=== PATIENT | female | born 1975 | race Caucasian/White ===

== ENCOUNTER 2021-01-15 19:30 | Inpatient (IN) | payer OTHER ==
[~2021-01-15] VITALS: Ht 170.2 cm; Wt 45.8 kg
[~2021-01-15 19:30] MED LIST: CATAPRES0.1 MG PO; COZAAR50 MG PO; ESTRACE1 MG PO; FIORICET1 EACH PO; IMITREX100 MG PO; PERCOCET 5-3251 EACH PO; VOLTAREN **OUT75 MG PO
[2021-01-15 21:13] LABS: BASOPHIL 0.2 % (0-2); EOSINOPHIL 0 % (0-5); HGB 13.7 g/dl (12.5-16.0); MCH 28.7 pg (25.0-31.0); MCHC 32.6 g/dL (32.0-36.0); MCV 88.1 fL (78.0-100.0); MPV 11.1 fL (6.0-9.5); NEUTROPHIL 62.6 % (41-80); NRBC 0; PLT 202 K/uL (150-400); RBC 4.77 M/uL (4.20-5.40); RDW 13.9 % (11.5-14.0)
[2021-01-15 21:37] LABS: PRO-BNP 11 pg/mL (<125)
[2021-01-15 21:38] LABS: LACTIC ACID 1.4 mmol/L (0.4-1.9)
[2021-01-15 21:43] LABS: ALBUMIN 3.6 g/dL (3.4-5.0); BILIRUBIN - TOTAL 0.4 mg/dL (0.2-1.0); BUN/CREAT RATIO (CALC) 13.2 RATIO; C-REACTIVE PROTEIN 4.4 mg/dL (<=0.90); CREATININE 0.76 mg/dL (0.51-0.95); GLOBULIN (CALCULATION) 4.5 g/dL; POTASSIUM 3.1 mmol/L (3.5-5.1); TOTAL PROTEIN 8.1 g/dL (6.4-8.2)
[2021-01-16 04:32] LABS: BASOPHIL 0.2 % (0-2); EOSINOPHIL 0 % (0-5); HCT 39.3 % (37.0-47.0); HGB 12.7 g/dl (12.5-16.0); LYMPHOCYTE 13.2 % (15-48); MCH 28.5 pg (25.0-31.0); MCHC 32.3 g/dL (32.0-36.0); MCV 88.3 fL (78.0-100.0); MONOCYTE 2.2 % (0-12); MPV 10.8 fL (6.0-9.5); NEUTROPHIL 84.4 % (41-80); NRBC 0; PLT 190 K/uL (150-400); RBC 4.45 M/uL (4.20-5.40); WBC 4.5 K/uL (4.0-10.5)
[2021-01-16] MEDS ORDERED: PROTONIX 40MG T40 MG PO (04:34)
[2021-01-16] MEDS ORDERED: SPIRIVA RESPIMAT4 G1 INH (04:34)
[2021-01-16] MEDS ORDERED: ALL DAY ALLERGY10 M2 PO (04:35)
[2021-01-16] MEDS ORDERED: SYMBICORT 80-10.2 GM INH (04:36)
[2021-01-16] MEDS ORDERED: VENTOLIN HFA IN18 GM INH (04:36)
[2021-01-16 05:03] LABS: ALBUMIN 3.3 g/dL (3.4-5.0); BILIRUBIN - TOTAL 0.3 mg/dL (0.2-1.0); BUN/CREAT RATIO (CALC) 11.3 RATIO; C-REACTIVE PROTEIN 4.3 mg/dL (<=0.90); CREATININE 0.71 mg/dL (0.51-0.95); GLOBULIN (CALCULATION) 3.8 g/dL; POTASSIUM 3.6 mmol/L (3.5-5.1); TOTAL PROTEIN 7.1 g/dL (6.4-8.2)
[2021-01-17 04:30] LABS: BASOPHIL 0.1 % (0-2); EOSINOPHIL 0 % (0-5); HCT 37.5 % (37.0-47.0); LYMPHOCYTE 24.7 % (15-48); MCH 28.7 pg (25.0-31.0); MCV 89.7 fL (78.0-100.0); MONOCYTE 6.7 % (0-12); MPV 11.2 fL (6.0-9.5); NEUTROPHIL 68.2 % (41-80); NRBC 0; PLT 187 K/uL (150-400); RBC 4.18 M/uL (4.20-5.40); RDW 14.6 % (11.5-14.0)
[2021-01-17 04:39] LABS: WBC 9.1 K/uL (4.0-10.5)
[2021-01-17 05:01] LABS: BILIRUBIN - TOTAL 0.2 mg/dL (0.2-1.0); BUN/CREAT RATIO (CALC) 17.6 RATIO; CREATININE 0.68 mg/dL (0.51-0.95); GLOBULIN (CALCULATION) 3.9 g/dL; POTASSIUM 3.4 mmol/L (3.5-5.1); TOTAL PROTEIN 6.9 g/dL (6.4-8.2)
[2021-01-18 07:09] LABS: BASOPHIL 0.2 % (0-2); EOSINOPHIL 0 % (0-5); HCT 36.1 % (37.0-47.0); HGB 11.4 g/dl (12.5-16.0); LYMPHOCYTE 40.7 % (15-48); MCH 28.4 pg (25.0-31.0); MCHC 31.6 g/dL (32.0-36.0); MPV 10.9 fL (6.0-9.5); NEUTROPHIL 51.8 % (41-80); NRBC 0; PLT 172 K/uL (150-400); RBC 4.01 M/uL (4.20-5.40); RDW 14.6 % (11.5-14.0); WBC 5.7 K/uL (4.0-10.5)
[2021-01-18 07:38] LABS: ALBUMIN 2.8 g/dL (3.4-5.0); BILIRUBIN - TOTAL 0.2 mg/dL (0.2-1.0); BUN/CREAT RATIO (CALC) 19.4 RATIO; CREATININE 0.62 mg/dL (0.51-0.95); GLOBULIN (CALCULATION) 3.7 g/dL; POTASSIUM 3.8 mmol/L (3.5-5.1); TOTAL PROTEIN 6.5 g/dL (6.4-8.2)
[2021-01-18] MEDS ORDERED: ONDANSETRON HCL8 MG PO (07:38)
[2021-01-18] MEDS ORDERED: DEXAMETHASONE 2M2 MG PO (07:38)
--- NOTE | 2021-01-18 10:29 | NUR ---
Ms. Jorge was independent in the home and community prior to admission. She is employed at [employer]. Ms. Jorge reports to be able to meet her financial obligations. - 02 is not required at discharge. Patient plans to go to the home of her daughter, Anna Shaikh, at discharge.
== END 2021-01-18 11:40 | disposition home or self-care (01) | DRG 177 ==
LOC: FER 19:30 → FMS 01-16 01:49
PROVIDERS: Emergency Medicine Emergency Medical Services; Nurse Practitioner; ADMIT Family Medicine
PROC: XW033G6 Introduction of REGN-COV2 Monoclonal Antibody into Peripheral Vein, Percutaneous Approach, New Technology Group 6 (ICD-10-PCS; 2021-01-15)
PROC: XW033E5 Introduction of Remdesivir Anti-infective into Peripheral Vein, Percutaneous Approach, New Technology Group 5 (ICD-10-PCS; principal; 2021-01-16)
PROC: 8E0ZXY6 Isolation (ICD-10-PCS; 2021-01-16)
DX: U07.1 COVID-19 (principal); J12.82 Pneumonia due to coronavirus disease 2019; J96.01 Acute respiratory failure with hypoxia; K50.90 Crohn's disease, unspecified, without complications; Z23 Encounter for immunization; J45.909 Unspecified asthma, uncomplicated; F31.9 Bipolar disorder, unspecified; I10 Essential (primary) hypertension; R73.9 Hyperglycemia, unspecified; K21.9 Gastro-esophageal reflux disease without esophagitis; Z86.711 Personal history of pulmonary embolism; Z90.49 Acquired absence of other specified parts of digestive tract; Z90.710 Acquired absence of both cervix and uterus; Z90.89 Acquired absence of other organs; Z98.890 Other specified postprocedural states; Z88.0 Allergy status to penicillin; Z88.6 Allergy status to analgesic agent; Z88.8 Allergy status to other drugs, medicaments and biological substances; Z88.1 Allergy status to other antibiotic agents; Z79.899 Other long term (current) drug therapy; Z82.49 Family history of ischemic heart disease and other diseases of the circulatory system; Z83.3 Family history of diabetes mellitus
CPT/HCPCS: 36415; 36600; 71275; 80053; 82728; 82803; 83036; 83605; 83615; 83880; 84145; 84484; 85025; 85379; 86140; 87040; 93005; 94010; 94640; 94664; C9399; J1650; J2270; J2405; J2930; J7030; J7050; J8540; M0243; Q0244; Q9967; U0002